=== PATIENT | female | born 1985 | race Caucasian/White ===

== ENCOUNTER 2021-07-26 10:41 | Outpatient (CLI) | payer SELFPAY ==
[~2021-07-26] VITALS: Ht 154.9 cm; Wt 79.4 kg
[~2021-07-26 10:41] MED LIST: ACHD5005 PO; IBUP-1773 PO; SULF1TAB38 PO
[2021-07-26] MEDS ORDERED: EPINEPHrine INJECTION 1 MG/ML AMP IM PRN (10:45)
[2021-07-26] MEDS ORDERED: diphenhydrAMINE 50 MG/ML INJ (BENADRYL) IV PRN (10:45)
[2021-07-26] MEDS ORDERED: ACETAMINOPHEN 500 MG TAB (TYLENOL) PO PRN (10:45)
[2021-07-26] MEDS ORDERED: CASIRIVIMAB/IMDEVIMAB 1,200 MG in NS (IVPB) 250 ML IV ONE (10:45)
[2021-07-26] MEDS ORDERED: ONDANSETRON 4 MG/2 ML (SDV) Z0FRAN IV PRN (10:45)
[2021-07-26 11:50] VITALS: BP 107/71
== END 2021-07-26 12:30 | disposition home or self-care (01) ==
LOC: INFUSION 10:41
PROVIDERS: ATTEND Nurse Practitioner Family
DX: Z23 Encounter for immunization (principal); U07.1 COVID-19